=== PATIENT | female | born 2000 | race Caucasian/White ===

== ENCOUNTER 2021-08-17 13:14 | Outpatient (REF) | payer MEDICAID, SELFPAY ==
[2021-08-18 08:15] LABS: CT PCR NOT DETECTED (Not Detect.); NG PCR NOT DETECTED (Not Detect.)
[2021-08-18 08:44] LABS: BV Int Neg Control Negative (Negative); BV Int Pos Control Positive (Positive)
== END 2021-08-17 13:15 | disposition home or self-care (01) ==
LOC: HO.LAB 13:14
PROVIDERS: PCP Family Medicine; Visit Provider Advanced Practice Midwife
DX: Z30.09 Encounter for other general counseling and advice on contraception (principal); Z20.2 Contact with and (suspected) exposure to infections with a predominantly sexual mode of transmission
CPT/HCPCS: 81025; 87480; 87491; 87510; 87591; 87660; 99202

== ENCOUNTER → 2021-12-16 13:42 | Outpatient (BNVA) | payer MEDICAID, SELFPAY | PROVIDERS: PCP Family Medicine; Visit Provider Advanced Practice Midwife | DX: Z30.09 Encounter for other general counseling and advice on contraception (principal); Z78.9 Other specified health status | CPT/HCPCS: 99212 ==

== ENCOUNTER 2021-12-29 17:02 | Emergency (ER) | payer MEDICAID, SELFPAY ==
--- NOTE | ~2021-12-29 | XR_ITS ---
EXAMINATION: XR RIBS, RIGHT CLINICAL INFORMATION: Fall COMPARISON: None TECHNIQUE: 3 views of the right ribs were obtained. FINDINGS: Cardiac silhouette is normal in size. The lungs are adequately aerated. There is no lobar consolidation. No pleural effusion or pneumothorax. No right-sided rib fracture. XR/XR ribs RT min 3V w CXR1V IMPRESSION: No right-sided rib fracture.
--- NOTE | ~2021-12-29 | CT_ITS ---
EXAMINATION: CT HEAD WITHOUT CONTRAST CLINICAL INFORMATION: Fall 3 days ago with persistent headache. Question loss of consciousness. COMPARISON: None TECHNIQUE: Contiguous axial imaging was performed from the skull base to vertex without intravenous administration of contrast. This CT examination was performed using dose optimization techniques as appropriate, variously including the following: *Automated exposure control *Adjustment of mA and/or kV according to patient size (this includes techniques or standardized protocols for targeted exams where dose is matched to indication/reason for exam; i.e. extremities or head) *Use of iterative reconstruction technique DLP: 650 mGy-cm FINDINGS: There is no evidence of acute intracranial hemorrhage or territorial infarction. No abnormal mass effect or midline shift is seen. Whitaker to white matter differentiation is well preserved. No extra-axial fluid collections are identified. The ventricles are normal in size. There is no abnormal attenuation within the brain parenchyma. The osseous structures and soft tissues are normal. The mastoid air cells and visualized portions of the paranasal sinuses are well aerated. CT/CT head/brain wo con IMPRESSION: No acute intracranial pathology.
[2021-12-29 18:07] VITALS: BP 106/61; PULSE 79; RESP 18; TEMP 36.9; O2SAT 99; BMI 25.3
[2021-12-29 19:02] VITALS: BP 104/67; PULSE 71; RESP 16; TEMP 36.5; O2SAT 98
--- NOTE | 2021-12-29 20:10 | ED_ITS ---
HPI - Fall General Chief Complaint: Fall Stated Complaint: Headache S/P Fall 12/26/21 Time Seen by Provider: 12/29/21 19:09 Source: patient Mode of arrival: ambulatory Limitations: no limitations History of Present Illness HPI Narrative: Patient presents emergency department for evaluation of a headache. She states 3 nights ago while intoxicated she fell. Does not exactly recall the events before or after the fall. She states that she thinks she passed out. She has had persistent headache since then as well as pain to the right side of her ribs and back. Denies fevers, chills, dizziness, lightheadedness, vision changes, neck pain, neck stiffness chest pain palpitations, shortness of breath difficulty breathing, nausea vomiting, abdominal pain, tingling in the extremities, bladder or bowel dysfunction. Related Data Previous Rx's Medication Instructions Recorded norelgestromin 150 mcg-e.estradiol 1 patch transdermal Q7D #9 ea 12/16/21 35 mcg/24 hr weekly transderm patch Allergies Allergy/AdvReac Type Severity Reaction Status Date / Time No Known Allergies Allergy Verified 12/29/21 18:07 Review of Systems Review of Systems: Constitutional : No Fever, No Chills, No Fatigue ENT/Mouth : No sore throat, No Rhinorrhea Eyes: No Eye Pain, No Swelling, No Redness Cardiovascular : No Chest Pain, No SOB, No Dyspnea on Exertion, positive rib pain Respiratory : No Cough, No Sputum Gastrointestinal : No Nausea, No Vomiting, No Diarrhea, No abdominal Pain Genitourinary : No Dysuria, No Urinary Frequency, No Hematuria, Musculoskeletal : No joint pain, No Myalgias, No Joint Swelling Skin : No Skin Lesions, No rash Neuro : No Weakness, No Numbness, No Dizziness, positive Headache Psych : No Anxiety/Panic, No Depression Heme/Lymph: No Bruising, No Bleeding,No Lymphadenopathy Endocrine : No Polyuria, No Polydipsia Yes all other systems are reviewed and are negative [facility] Past Medical History Attestation statement: The following information was validated with the patient. Source: old records reviewed Social History Social History Alcohol intake: current Alcohol intake frequency: holidays/special occasions only Patient Tobacco Use Status: Former Tobacco user Advance Directives: No Advance Directives Information Provided: Yes Gender identity: Female Physical Exam Vital Signs: Vital Signs: Last Vital Signs Temp 97.7 F 12/29/21 19:02 Pulse 71 12/29/21 19:02 Resp 16 12/29/21 19:02 BP 104/67 12/29/21 19:02 Pulse Ox 98 12/29/21 19:02 O2 Del Method 12/29/21 19:02 BMI result Body Mass Index 25.3 Appearance: Alert.?Oriented to person, place and time. No acute distress.?Normal affect. Eyes: Pupils equal, round and reactive to light.? EOMI. No nystagmus ENT: Pharynx normal.?? Neck: Normal inspection.? Neck supple.??No midline cervical spine tenderness, step-offs, deformities CVS: Heart sounds normal. Normal heart rate and rhythm.? Pulses normal.? Mild tenderness upon palpation of the right lateral chest wall. No crepitus. ? Respiratory: No respiratory distress.? Lung sounds clear to auscultation bilaterally?? Abdomen: Soft and non-tender. ? Skin: Skin warm and dry.? Normal skin color.? Extremities: No lower extremity edema.? Neuro: Moves all extremities spontaneously. Sensation intact bilaterally. CN II- XII intact. No focal neuro deficits. Ambulates with normal steady gait. Course Course Course Narrative: Patient is a 21-year-old female being evaluated for persistent headache and rib pain after a mechanical fall while intoxicated 3 days ago. She is overall well- appearing, has no focal neurological deficits, vital signs are stable. We will chest wall tenderness without obvious deformities or crepitus. No respiratory distress. X-ray of the chest/right ribs reveals no acute fracture, dislocation or pulmonary process. CT of the head reveals no acute intracranial pathology, therefore not consistent with ICH/SAH. Discussed these findings with patient. Advised pain to the ribs and back secondary to contusion, persistent headaches consistent with concussion. Discussed conservative treatment for concussion management, Tylenol/ibuprofen as needed for pain, outpatient follow-up with her primary care provider, worrisome signs and symptoms to return back to the emergency department for. All questions were answered, and patient was discharged in stable condition, ambulated with a steady gait. MDM - Fall Medical Records Attestation: I reviewed the patient's medical records. Imaging Data Chest x-ray: Radiologist's impression: FINDINGS: Cardiac silhouette is normal in size. The lungs are adequately aerated. There is no lobar consolidation. No pleural effusion or pneumothorax. No right-sided rib fracture. XR/XR ribs RT min 3V w CXR1V IMPRESSION: No right-sided rib fracture. CT scan - head: Radiologist's impression: FINDINGS: There is no evidence of acute intracranial hemorrhage or territorial infarction. No abnormal mass effect or midline shift is seen. Whitaker to white matter differentiation is well preserved. No extra-axial fluid collections are identified. The ventricles are normal in size. There is no abnormal attenuation within the brain parenchyma. The osseous structures and soft tissues are normal. The mastoid air cells and visualized portions of the paranasal sinuses are well aerated. ? CT/CT head/brain wo con IMPRESSION: No acute intracranial pathology. Discharge Plan Discharge Clinical Impression: Concussion Patient Disposition: Home, Self-Care Instructions: Concussion (ED) Additional Instructions: As we discussed, your headache is most likely due to a concussion after your injury. Be sure to rest, stay well hydrated, avoid prolonged screen time including television, cell phone, computer. As these tend to make the headaches worse You can take ibuprofen 200 mg, 3 tablets (600mg) every 6-8 hours as needed for pain, in addition to Tylenol 500 mg, 2 tablets (1,000mg) every 4-6 hours as needed for pain, but not to exceed 3 doses daily (3,000mg).? Consider alternating between the 2 throughout the day to aid in relief of your pain. Please contact your primary care provider and arrange for a follow-up visit within 1 week. Return to the emergency department any new or worsening symptoms or concerns. Prescriptions: No Action norelgestromin-ethin.estradiol 150-35 mcg/24 hr patch weekly 1 patch transdermal Q7D Qty: 9 4RF Rx Instructions: apply once weekly for 3 weeks of a 4-week cycle Interventions: ED Discharge Assessment Last Done: 12/29/21 20:47 Discharge Date/Time: 12/29/21 20:47
== END 2021-12-29 20:47 | disposition home or self-care (01) ==
PROVIDERS: Emergency Provider Emergency Medicine
DX: S06.0X0A Concussion without loss of consciousness, initial encounter (principal); W19.XXXA Unspecified fall, initial encounter; R07.81 Pleurodynia; Y93.9 Activity, unspecified; Y92.9 Unspecified place or not applicable; Y99.9 Unspecified external cause status
CPT/HCPCS: 70450; 71101; 99283; 99284

== ENCOUNTER → 2022-04-14 11:08 | Outpatient (BNVA) | payer MEDICAID, SELFPAY | PROVIDERS: Visit Provider Advanced Practice Midwife | DX: Z30.09 Encounter for other general counseling and advice on contraception (principal); Z78.9 Other specified health status; Z20.2 Contact with and (suspected) exposure to infections with a predominantly sexual mode of transmission | CPT/HCPCS: 99212 ==

== ENCOUNTER 2022-11-22 17:38 | Emergency (ER) | payer SELFPAY ==
[2022-11-22 17:42] VITALS: BP 112/92; PULSE 85; RESP 18; TEMP 36.8; O2SAT 99; BMI 28.3
--- NOTE | 2022-11-22 17:43 | ED.GENADULT ---
HPI - General Adult General Chief complaint: Eye Problems Stated complaint: Eye problem Time Seen by Provider: 11/22/22 22:55 Source: patient, RN notes reviewed and old records reviewed Mode of arrival: ambulatory Limitations: no limitations History of Present Illness HPI narrative: 22-year-old female presents for evaluation of bilateral eye pain Patient reports that she was at a pool alliance party yesterday and was playing in a ?inflatable slide. ? She states that she got lots of water and her eyes but did not experience any specific injury that she can remember She reports that she woke up with significant pain to both eyes, light sensitivity and she felt that she was unable to open her eyes in the morning At the time my evaluation she reports her symptoms have greatly improved Denies any blurry vision She still does endorse mild redness and some burning to both eyes She has not were contacts or glasses Related Data Previous Rx's Medication Instructions Recorded norelgestromin 150 mcg-e.estradiol 1 patch transdermal Q7D #9 ea 04/14/22 35 mcg/24 hr weekly transderm patch erythromycin 5 mg/gram (0.5 %) eye 0.5 inch ophthalmic (eye) TID 5 11/23/22 ointment days #3.5 grams Allergies Allergy/AdvReac Type Severity Reaction Status Date / Time No Known Allergies Allergy Verified 04/14/22 11:13 Review of Systems Eyes: Eyes: Denies blurry vision, Denies exophthalmos, Denies change in vision, Denies eye discharge, Reports irritation, Reports itchy eyes, Reports eye pain, Denies requires corrective lenses and Reports photophobia Allergic/Immunologic: Allergic/Immunologic: Reports itchy eyes PMFSH Social History Social History Alcohol intake: current Alcohol intake frequency: holidays/special occasions only Patient Tobacco Use Status: Former Tobacco user Advance Directives: No Advance Directives Information Provided: Yes Patient : No Gender identity: Female Physical Exam ED Vital Signs: Vital Signs - 24 hr 11/22/22 17:42 11/22/22 22:13 Temperature 98.3 F 98.1 F Pulse Rate 85 87 Respiratory Rate 18 16 Blood Pressure 112/92 H 123/75 Pulse Oximetry 99 99 Oxygen Delivery Method Room Air Room Air BMI result Body Mass Index 28.3 Const General: healthy appearing, comfortable, no acute distress, alert and awake Nutritional Appearance: well nourished Orientation/consciousness: patient oriented x3 HENMT Head: Yes normocephalic and Yes atraumatic Eyes Alignment and Position: alignment normal Periorbital: periorbital findings normal Eyelids: Yes eyelids normal Conjunctivae: conjunctival abnormal (Mild bilateral conjunctival injection) Corneas: corneas abnormal on the left fluorescein used and abrasion linear and at the following clock position (2 to 3 o'clock position) and fluorescein used Pupils: Equal, round and reactive pupils present EOM: EOMs intact bilaterally Direct Ophthalmoscopy: photophobia Neck Neck: Yes full ROM Resp Effort & Inspection: normal respiratory effort, able to speak in complete sentences and not labored Skin General skin exam: no rashes or lesions noted and elasticity normal Neuro General: patient oriented x3 Cranial nerves: Yes Equal, round and reactive pupils present and Yes Bilaterally intact EOM present Cognition (Neuro): normal cognition Extrem Other: Moving all extremities well without any obvious deformities Course Course Course Narrative: RmE: 22 yold female presents to the ED for bilateral eye redness and pain after swimming. Patient deneis any recent truama to the eyes. patient states no visual changes Medications Administered Discontinued Medications Generic Name Dose Route Start Last Admin Trade Name Freq PRN Reason Stop Dose Admin Fluorescein Sodium 1 strip 11/22/22 23:13 11/22/22 23:21 Fluorescein Sodium Strip EYE-BOTH 11/22/22 23:14 1 strip ONCE ONE Administration Tetracaine HCl 1 drop 11/22/22 23:13 11/22/22 23:21 Tetracaine Hcl/Pf 0.5% Oph Dena 4 Ml Drops EYE-BOTH 11/22/22 23:14 1 drop ONCE ONE Administration Medical Decision Making Medical Decision Making MDM Narrative: Patient has mild conjunctival injection and irritation. She reports getting water in her eyes yesterday and concerned that she got a mixture of her chronic in her eyes because of the water. She appears to have a corneal abrasion on the left and a possible corneal abrasion on the right. Will treat with erythromycin ointment. It is possible that the corneal abrasions were from rubbing her eyes this morning due to the increased pain and she does not report any specific injury yesterday. Differential Diagnosis Corneal abrasion Conjunctivitis Scleritis Iritis Discharge Plan Discharge Clinical Impression: Abrasion of cornea, left Patient Disposition: Home, Self-Care Instructions: Corneal Abrasion (ED) Additional Instructions: Your left eye has a small corneal abrasion. It is unclear if this happened while your at the water slide or if you were rubbing her eyes and caused it earlier today Regardless, using erythromycin ointment 3 times a day for the next 5 days Return for new or worsening symptoms Prescriptions: New erythromycin 5 mg/gram (0.5 %) ointment 0.5 inch ophthalmic (eye) TID 5 Days Qty: 3.5 0RF No Action norelgestromin-ethin.estradiol 150-35 mcg/24 hr patch weekly 1 patch transdermal Q7D Qty: 9 4RF Rx Instructions: apply once weekly for 3 weeks of a 4-week cycle Stand Alone Forms: Work/School Release Interventions: ED Discharge Assessment Last Done: 11/23/22 00:29 Discharge Date/Time: 11/23/22 00:29
[2022-11-22 22:13] VITALS: BP 123/75; PULSE 87; RESP 16; TEMP 36.7; O2SAT 99
== END 2022-11-23 00:29 | disposition home or self-care (01) ==
PROVIDERS: Emergency Provider Internal Medicine
DX: S05.02XA Injury of conjunctiva and corneal abrasion without foreign body, left eye, initial encounter (principal); S05.01XA Injury of conjunctiva and corneal abrasion without foreign body, right eye, initial encounter; X58.XXXA Exposure to other specified factors, initial encounter; Y93.19 Activity, other involving water and watercraft; Y92.831 Amusement park as the place of occurrence of the external cause; Y99.9 Unspecified external cause status
CPT/HCPCS: 99283; 99284

== ENCOUNTER 2023-06-05 21:40 | Emergency (ER) | payer OTHER, SELFPAY ==
--- NOTE | ~2023-06-05 | XR_ITS ---
EXAMINATION: XR ANKLE, RIGHT CLINICAL INFORMATION: Injury. Holmes a crack. COMPARISON: None available. TECHNIQUE: AP, lateral, and mortise views of the right ankle. FINDINGS: There is bimalleolar soft tissue swelling slightly greater on the medial side there is no visible acute fracture or dislocation. No subluxation seen. The bones are intact. XR/XR ankle RT min 3V IMPRESSION: Bimalleolar soft tissue swelling slightly greater on the medial side. No visible acute fracture or dislocation seen.
[2023-06-05 21:43] VITALS: BP 134/85; PULSE 94; RESP 14; TEMP 36.8; O2SAT 99; BMI 33.7
[2023-06-06 00:22] VITALS: BP 120/63; PULSE 80; RESP 16; O2SAT 99
--- NOTE | 2023-06-06 00:34 | ED.GENADULT ---
HPI - General Adult General Chief complaint: Extremity Injury, Lower Stated complaint: ? broke right ankle Time Seen by Provider: 06/06/23 00:24 Source: patient Mode of arrival: ambulatory Limitations: no limitations History of Present Illness HPI narrative: 23 year old otherwise healthy female presents with right ankle pain that started yesterday after she was jumping rope. She states that when she jumped she did not land on her foot flat and heard a cracking sound, but does not recall if her ankle rolled inwards or outwards. States that she has been using ice, and notes moderate pain of the right foot. Related Data Previous Rx's Medication Instructions Recorded norelgestromin 150 mcg-e.estradiol 1 patch transdermal Q7D #9 ea 04/14/22 35 mcg/24 hr weekly transderm patch erythromycin 5 mg/gram (0.5 %) eye 0.5 inch ophthalmic (eye) TID 5 11/23/22 ointment days #3.5 grams Allergies Allergy/AdvReac Type Severity Reaction Status Date / Time No Known Allergies Allergy Verified 06/05/23 21:54 Review of Systems Constitutional: Constitutional: Reports as per HPI, Denies chills and Denies fever(s) Musculoskeletal: Musculoskeletal: Reports arthralgias, Reports joint swelling and Reports limited range of motion Comments: Right foot pain, swelling, and decreased range of motion. Neurologic: Denies focal weakness [facility] Social History Social History Alcohol intake: current Alcohol intake frequency: holidays/special occasions only Patient Tobacco Use Status: Former Tobacco user Smoked in Last 30 Days: No Use of substances other than those prescribed or required for medical reasons: No Advance Directives: No Advance Directives Information Provided: No Patient : No Gender identity: Female Physical Exam ED Vital Signs: Vital Signs - 24 hr 06/05/23 21:43 06/06/23 00:22 Temperature 98.2 F Pulse Rate 94 80 Respiratory Rate 14 16 Blood Pressure 134/85 120/63 Pulse Oximetry 99 99 Oxygen Delivery Method Room Air Room Air BMI result Body Mass Index 33.7 Const General: healthy appearing, comfortable, no acute distress, alert and awake; No in distress HENMT Head: Yes normocephalic and Yes atraumatic Extrem Other: Edema along the medial aspect of right foot. Tenderness to palpation of dorsum of proximal foot. Foot is neurovascularly intact. There are no lacerations, abrasions or obvious deformity. Medical Decision Making Medical Decision Making [facility] Narrative: 23 year old otherwise healthy female presents after injury to right foot after landing on foot while jumping. Physical exam is reassuring; there is swelling along the medial aspect of the right foot, but lower extremity is otherwise neurovascularly intact without obvious contusion. Ankle X-ray reveals bimalleolar soft tissue swelling greater on the medial side without visible acute fracture or dislocation seen. Recommend rest, elevation of extremity & crutches as needed. Differential Diagnosis Differential Diagnoses: The differential diagnosis associated with the presentation includes Sprain Fracture Dislocation Contusion Independent Interpretation I performed an independent interpretation of an: Plain X-Ray (No acute fracture of the right eye) Radiology Impression Discussion of test interpretation with radiology: I have reviewed the radiologist's reading. Radiologist Impression: Soft tissue swelling without definitive fracture Discharge Plan Discharge Clinical Impression: Right ankle sprain Patient Disposition: Home, Self-Care Instructions: Ankle Sprain (ED) Additional Instructions: Your x-ray did not show any fractures. You have a sprained ankle Elevate the leg above her heart while resting. Use ibuprofen/Tylenol Avoid walking or standing for long periods of time until the pain and swelling resolved Follow-up with your primary doctor Prescriptions: No Action erythromycin 5 mg/gram (0.5 %) ointment 0.5 inch ophthalmic (eye) TID 5 Days Qty: 3.5 0RF norelgestromin-ethin.estradiol 150-35 mcg/24 hr patch weekly 1 patch transdermal Q7D Qty: 9 4RF Rx Instructions: apply once weekly for 3 weeks of a 4-week cycle Print Language: Korean
== END 2023-06-06 01:05 | disposition home or self-care (01) ==
PROVIDERS: Emergency Provider Internal Medicine
DX: S93.401A Sprain of unspecified ligament of right ankle, initial encounter (principal); X58.XXXA Exposure to other specified factors, initial encounter; Y93.9 Activity, unspecified; Y92.9 Unspecified place or not applicable; Y99.9 Unspecified external cause status
CPT/HCPCS: 73610; 99283; 99284